=== PATIENT | male | born 1990 | race Caucasian/White ===

== ENCOUNTER → 2022-08-07 | Outpatient (CLI) | payer OTHER ==
[2022-08-08 09:07] LABS: RUBELLA AB IGG-REFLAB 11.3 index (Immune >0.99); RUBEOLA (MEASLES) IGG 17.6 AU/mL (Immune >16.4)
[2022-08-09 11:07] LABS: QUANTIFERON, TB GOLD PLUS Negative (Negative)
== END | disposition home or self-care (01) ==
LOC: LABMN 11:14
PROVIDERS: ATTEND Internal Medicine
DX: Z02.1 Encounter for pre-employment examination (principal)
CPT/HCPCS: 86317; 86480; 86735; 86762; 86765; 86787

== ENCOUNTER 2024-03-17 19:19 | Emergency (ER) | payer OTHER ==
[~2024-03-17] VITALS: Ht 170.2 cm; Wt 93.6 kg
[2024-03-17 20:13] VITALS: BP 123/74; PULSE 85; RESP 18; TEMP 97.8; O2SAT 99
[2024-03-17] MEDS ORDERED: TRAM50TA5 PO (21:37)
[2024-03-17] MEDS ORDERED: CLIN-142 PO (21:37)
[2024-03-17] MEDS: TraMADol HCL 50 MG TABLET PO ONE (22:15)
[2024-03-17] MEDS: KETOROLAC TROMETHAMINE 30 MG/ML VIAL IM ONE (22:15)
[2024-03-17] MEDS: CLINDAMYCIN PHOS 150 MG/ML 4 ML VIAL IM ONE (22:18)
== END 2024-03-17 22:28 | disposition home or self-care (01) ==
LOC: EMS 19:25
DX: K02.9 Dental caries, unspecified (principal)
CPT/HCPCS: 99284; 96372; J1885; J3490